=== PATIENT | female | born 1995 | race Caucasian/White ===

== ENCOUNTER 2020-01-16 23:49 | Inpatient (IN) ==
[2020-01-17] MEDS ORDERED: OXYTOCIN 30 UNITS/500 ML BAG IV PRN ×2 (00:36→16:09)
[2020-01-17] MEDS ORDERED: BUTORPHANOL TARTRATE 1 MG/ML VIAL IV PRN (00:44)
--- NOTE | 2020-01-17 00:44 | History & Physical Report ---
Date of Service January 17, 2020 Assessment & Plan (1) Normal labor: Admission and Anticipated Discharge Date Admission Date: IUP at 41 weeks who was to be induced for post term presents with early labor will walk for now - epidural when appropriate anticipate vaginal History of Present Illness Primary Care Provider: NO PCP Patient is a 24 yo who presents at 41 weeks with regular contractions today that became stronger around 2100. No SPROM but she has had a pink discharge. GBS negative. She was a late transfer to our care after her prior OB retired. o therwise has been uncomplicated. Allergies Allergy/AdvReac Type Severity Reaction Status Date / Time amoxicillin Allergy Unknown Unsure Verified 01/17/20 00:13 Penicillins Allergy Unknown Unsure Verified 01/17/20 00:13 Home Medications Home Medications Medication Instructions Recorded Confirmed Type prenat.vits,song,nag-ierk-kxykp 1 tab PO DAILY 12/24/19 01/17/20 History Patient History Medical History (Updated 01/17/20 @ 00:41 by Samia Quesada MD, FACOG) Hx of varicella Surgical History History of tonsillectomy and adenoidectomy Family History Mother Breast cancer Social History (Updated 12/24/19 @ 11:11 by Ana Maya) Smoking Status: Never smoker Second Hand Exposure: No; Hx Alcohol Use: No Hx Substance Use: No Preferred Language: [employer] Director Required: No Beliefs That Will Affect Care: None marital status: Single marital status details: Tomas Wilcox (25) [phone] Current Living Situation: Spouse Current Living Situation Comment: lives with FOB and his daughter, no pets current occupational status: employed current occupation: [employer] Other Information That Helps Us Care for You: No Feels Safe at Home: Yes Safety Concerns: Feels Safe At This Time Review of Systems All systems reviewed & are unremarkable except as noted in HPI & below Physical Exam Constitutional: WD/WN, vitals as above Respiratory: normal respiratory effort, lungs clear to auscultation Cardiovascular: RRR, no murmur, no edema Psychiatric: A+Ox3, euthymic affect Genitourinary: OB Exam Abdomen: + vertex and + regular contractions (every 2 minutes) Manual OB Exam: + cervical dilation 3 cm, + cervical effacement 60% and + station -2 OB Exam Monitor Tracing: + external FHT monitor used, + external uterine monitor used, + category I and + normal FHT variability Results & Data ([facility]) Vital Signs (Past 12 Hours) Vital Signs Temp Pulse Resp BP 01/17/20 00:20 118 H 134/74 01/17/20 00:14 98.1 F 18 Coding Level of Care Code None Diagnoses Normal labor O80; Z37.9
[2020-01-17] MEDS: LACTATED RINGER'S 1,000 ML IV PRN ×4 (00:56→12:57)
[2020-01-17 01:00] LABS: Hematocrit (blood only) 36.6 % (37-47); Hemoglobin 12.1 g/dL (12.0-16.0); Mean Corpuscular Hemoglobin 27.8 pg (25-34); Mean Corpuscular Volume 84.1 fL (80-100); Mean Platelet Volume 9.8 fL (7.4-10.4); Platelet Count 338 K/uL (130-400); RDW Standard Deviation 42.6 fL (36.4-46.3); Red Blood Count 4.35 M/uL (4.2-5.4); White Blood Count 18.16 K/uL (4.8-10.8)
[2020-01-17 01:02] LABS: Mean Corpuscular Hgb Conc 33.1 g/dL (32-36)
[2020-01-17] MEDS ORDERED: ePHEDrine sulfate 50 MG/ML AMP ONE (04:59)
[2020-01-17] MEDS ORDERED: fentaNYL citrate 100 MCG/2 ML VIAL ONE (05:00)
[2020-01-17] MEDS ORDERED: BUPIVACAINE 0.25% 30 ML VIAL ONE (05:00)
[2020-01-17] MEDS ORDERED: fentaNYL 2MCG/ML ROPIV 1.25MG/ML 100 ML BAG EPI ONE (05:00)
--- NOTE | 2020-01-17 05:50 | Anesthesiology Consultation ---
Date of Service January 17, 2020 Assessment & Plan Chart Review Chart Review: Acceptable Risk for Labor Epidural Consults Requested none History Height/Weight Height: 5 ft 4 in Weight: 90.718 kg Allergies Allergy/AdvReac Type Severity Reaction Status Date / Time amoxicillin Allergy Unknown Unsure Verified 01/17/20 00:13 Penicillins Allergy Unknown Unsure Verified 01/17/20 00:13 Medications Home Medications Medication Instructions Recorded Confirmed Last Taken prenat.vits,song,ckx-pdgp-qxcqm 1 tab PO DAILY 12/24/19 01/17/20 01/17/20 Active Medications Generic Name Dose Route Start Last Admin Trade Name Freq PRN Reason Stop Dose Admin Lactated Ringer's 1,000 mls @ 125 mls/hr 01/17/20 00:36 01/17/20 05:40 Lr IV 01/19/20 00:35 999 mls/hr .Q8H PRN Infusion L&D Protocol Protocol Past Medical History Medical History Hx of varicella Past Family History Family History Mother Breast cancer Past Surgical History Surgical History History of tonsillectomy and adenoidectomy Social History Smoking Status: Never smoker Hx Alcohol Use: No Hx Substance Use: No substance use type: does not use Physical Exam Vital Signs Last Vital Signs Temp 37.0 C 01/17/20 02:32 Pulse 122 H 01/17/20 05:48 Resp 16 01/17/20 05:33 BP 100/51 L 01/17/20 05:48 Pulse Ox 96 01/17/20 05:46 Testing Laboratory Results 01/17/20 00:45
[2020-01-17] MEDS ORDERED: ePHEDrine sulfate 50 MG/ML AMP IV PRN (05:53)
[2020-01-17] MEDS ORDERED: NALOXONE HCL 0.4 MG/1 ML VIAL/CARP IV PRN (05:53)
[2020-01-17] MEDS ORDERED: NALOXONE HCL 1 MG in SODIUM CHLORIDE 0.9% 1000ML 1,000 ML IV PRN (05:53)
[2020-01-17] MEDS ORDERED: DiphenhydrAMINE HCL 50 MG/ML VIAL IV PRN (05:53)
[2020-01-17] MEDS ORDERED: fentaNYL 2MCG/ML ROPIV 1.25MG/ML 100 ML BAG EPI PRN (05:53)
[2020-01-17] MEDS ORDERED: ONDANSETRON INJ 2 MG/ML 2 ML VIAL IV PRN (05:53)
[2020-01-17] MEDS ORDERED: PHENYLEPHRINE 100MCG/ML 5ML SYR ONE (06:07)
--- NOTE | 2020-01-17 10:30 | Labor Progress Brief Note ---
Date of Service January 17, 2020 Subjective Late note - from 0800. Patient comfortable with epidural. FHT 160s, mod maria alejandra, +accels, occ late decel. [place] Q 2 AROM clear with slight blood tinge. IUPC, FSE placed. SVE /-2 Assessment & Plan Admission and Anticipated Discharge Date Admission Date: January 17, 2020 Results & Data ([facility]) Vital Signs (Past 12 Hours) Vital Signs Temp Pulse Resp BP Pulse Ox 01/17/20 10:26 104 H 97 01/17/20 10:21 106 H 96 01/17/20 10:16 102 H 107/51 L 96 01/17/20 10:11 109 H 94 01/17/20 10:06 107 H 95 01/17/20 10:01 103 H 95 01/17/20 10:00 117 H 109/52 L 01/17/20 09:56 106 H 96 01/17/20 09:51 109 H 94 01/17/20 09:46 112 H 94 01/17/20 09:45 108 H 111/55 L 01/17/20 09:41 105 H 96 01/17/20 09:36 105 H 97 01/17/20 09:31 110 H 98 01/17/20 09:30 112 H 109/53 L 01/17/20 09:26 108 H 94 01/17/20 09:21 108 H 95 01/17/20 09:16 113 H 96 01/17/20 09:15 108 H 120/55 L 01/17/20 09:11 113 H 97 01/17/20 09:06 114 H 96 01/17/20 09:01 116 H 97/55 L 97 01/17/20 09:00 37.3 C 18 01/17/20 08:56 140 H 96 01/17/20 08:51 116 H 95 01/17/20 08:46 123 H 111/55 L 96 01/17/20 08:41 119 H 95 01/17/20 08:36 116 H 95 01/17/20 08:31 118 H 95 01/17/20 08:30 134 H 110/51 L 01/17/20 08:26 118 H 94 01/17/20 08:21 122 H 95 01/17/20 08:16 114 H 95 01/17/20 08:15 120 H 108/53 L 01/17/20 08:11 116 H 95 01/17/20 08:06 118 H 97 01/17/20 08:01 119 H 97 01/17/20 08:00 118 H 119/58 L 01/17/20 07:56 134 H 97 01/17/20 07:51 132 H 97 01/17/20 07:46 127 H 114/58 L 98 01/17/20 07:41 128 H 96 01/17/20 07:36 137 H 95 01/17/20 07:31 121 H 111/54 L 92 01/17/20 07:26 122 H 93 01/17/20 07:21 124 H 93 01/17/20 07:16 124 H 93 01/17/20 07:15 126 H 109/55 L 01/17/20 07:11 121 H 93 01/17/20 07:06 132 H 92 01/17/20 07:01 128 H 106/51 L 94 01/17/20 07:00 37.3 C 122 H 18 94 01/17/20 06:56 121 H 93 01/17/20 06:51 133 H 93 01/17/20 06:46 136 H 18 118/56 L 94 01/17/20 06:41 123 H 95 01/17/20 06:36 117 H 94 01/17/20 06:31 123 H 95 01/17/20 06:29 37.2 C 116 H 16 126/57 L 01/17/20 06:26 122 H 95 01/17/20 06:23 123 H 115/56 L 01/17/20 06:21 127 H 95 01/17/20 06:20 18 01/17/20 06:18 114 H 123/60 01/17/20 06:16 121 H 128/60 96 01/17/20 06:14 113 H 122/62 01/17/20 06:12 112 H 135/69 01/17/20 06:11 112 H 96 01/17/20 06:10 105 H 137/73 01/17/20 06:08 126 H 133/61 01/17/20 06:06 135 H 104/55 L 96 01/17/20 06:04 136 H 94 01/17/20 06:03 37.6 C H 130 H 18 96/50 L 01/17/20 06:01 129 H 102/50 L 94 01/17/20 05:58 116 H 91/41 L 01/17/20 05:56 119 H 92 01/17/20 05:53 121 H 93 01/17/20 05:51 124 H 95 01/17/20 05:50 118 H 92/47 L 01/17/20 05:48 122 H 100/51 L 01/17/20 05:46 119 H 101/51 L 96 01/17/20 05:45 18 01/17/20 05:44 130 H 100/48 L 01/17/20 05:42 120 H 101/54 L 01/17/20 05:41 130 H 96 01/17/20 05:40 116 H 16 83/44 L 01/17/20 05:39 117 H 90/50 L 94 01/17/20 05:36 128 H 110/51 L 94 01/17/20 05:34 118 H 115/55 L 01/17/20 05:33 16 01/17/20 05:31 122 H 94 01/17/20 05:30 126 H 119/72 01/17/20 05:29 128 H 94 01/17/20 05:28 129 H 16 117/75 01/17/20 05:26 130 H 96 01/17/20 05:21 129 H 95 01/17/20 05:16 133 H 96 01/17/20 05:15 129 H 93 01/17/20 05:11 139 H 95 01/17/20 05:06 130 H 94 01/17/20 05:03 132 H 94 01/17/20 05:01 136 H 97 01/17/20 04:56 179 H 97 01/17/20 02:32 37.0 C 105 H 16 120/69 01/17/20 00:20 118 H 134/74 01/17/20 00:14 36.7 C 18 Coding Level of Care Code None
--- NOTE | 2020-01-17 14:09 | Labor Progress Brief Note ---
Date of Service January 17, 2020 Subjective Patient is beginning to push w/ contractions. Assessment & Plan Admission and Anticipated Discharge Date Admission Date: January 17, 2020 Physical Exam Genitourinary: OB Exam Monitor Tracing: + external FHT monitor used, + scalp electrode used, + external uterine monitor used and + normal FHT variability Manual OB Exam: 10cm 100%. +2. Results & Data ([facility]) Vital Signs (Past 12 Hours) Vital Signs Temp Pulse Resp BP Pulse Ox 01/17/20 14:01 114 H 99 01/17/20 14:00 133 H 122/59 L 01/17/20 13:56 98 H 100 01/17/20 13:51 103 H 100 01/17/20 13:46 96 H 98 01/17/20 13:45 98 H 130/71 01/17/20 13:41 100 H 100 01/17/20 13:36 102 H 100 01/17/20 13:31 105 H 100 01/17/20 13:30 95 H 18 128/64 01/17/20 13:26 105 H 100 01/17/20 13:21 100 H 99 01/17/20 13:16 98 H 99 01/17/20 13:15 100 H 120/57 L 01/17/20 13:11 100 H 100 01/17/20 13:06 101 H 99 01/17/20 13:01 107 H 128/63 100 01/17/20 13:00 37.3 C 18 01/17/20 12:56 98 H 100 01/17/20 12:51 97 H 100 01/17/20 12:46 109 H 99 01/17/20 12:45 98 H 121/56 L 01/17/20 12:41 101 H 99 01/17/20 12:36 102 H 98 01/17/20 12:31 103 H 98 01/17/20 12:30 103 H 18 120/56 L 01/17/20 12:26 108 H 98 01/17/20 12:21 97 H 98 01/17/20 12:16 106 H 98 01/17/20 12:15 100 H 118/63 01/17/20 12:11 107 H 99 01/17/20 12:06 113 H 98 01/17/20 12:01 120 H 126/69 98 01/17/20 12:00 18 01/17/20 11:56 104 H 96 01/17/20 11:51 108 H 96 01/17/20 11:46 104 H 97 01/17/20 11:45 115 H 119/64 01/17/20 11:41 129 H 97 01/17/20 11:36 106 H 96 01/17/20 11:31 100 H 96 01/17/20 11:30 104 H 18 127/67 01/17/20 11:26 112 H 97 01/17/20 11:21 101 H 97 01/17/20 11:16 95 H 123/69 98 01/17/20 11:11 97 H 98 01/17/20 11:06 96 H 98 01/17/20 11:01 106 H 119/57 L 96 01/17/20 11:00 37.2 C 18 01/17/20 10:56 105 H 95 01/17/20 10:51 107 H 95 01/17/20 10:46 106 H 115/57 L 96 01/17/20 10:41 109 H 96 01/17/20 10:36 104 H 95 01/17/20 10:31 109 H 112/54 L 97 01/17/20 10:30 16 01/17/20 10:26 104 H 97 01/17/20 10:21 106 H 96 01/17/20 10:16 102 H 107/51 L 96 01/17/20 10:11 109 H 94 01/17/20 10:06 107 H 95 01/17/20 10:01 103 H 95 01/17/20 10:00 117 H 18 109/52 L 01/17/20 09:56 106 H 96 01/17/20 09:51 109 H 94 01/17/20 09:46 112 H 94 01/17/20 09:45 108 H 111/55 L 01/17/20 09:41 105 H 96 01/17/20 09:36 105 H 97 01/17/20 09:31 110 H 98 01/17/20 09:30 112 H 20 109/53 L 01/17/20 09:26 108 H 94 01/17/20 09:21 108 H 95 01/17/20 09:16 113 H 96 01/17/20 09:15 108 H 120/55 L 01/17/20 09:11 113 H 97 01/17/20 09:06 114 H 96 01/17/20 09:01 116 H 97/55 L 97 01/17/20 09:00 37.3 C 18 01/17/20 08:56 140 H 96 01/17/20 08:51 116 H 95 01/17/20 08:46 123 H 111/55 L 96 01/17/20 08:41 119 H 95 01/17/20 08:36 116 H 95 01/17/20 08:31 118 H 95 01/17/20 08:30 134 H 18 110/51 L 01/17/20 08:26 118 H 94 01/17/20 08:21 122 H 95 01/17/20 08:16 114 H 95 01/17/20 08:15 120 H 108/53 L 01/17/20 08:11 116 H 95 01/17/20 08:06 118 H 97 01/17/20 08:01 119 H 97 01/17/20 08:00 118 H 16 119/58 L 01/17/20 07:56 134 H 97 01/17/20 07:51 132 H 97 01/17/20 07:46 127 H 114/58 L 98 01/17/20 07:41 128 H 96 01/17/20 07:36 137 H 95 01/17/20 07:31 121 H 111/54 L 92 01/17/20 07:30 18 01/17/20 07:26 122 H 93 01/17/20 07:21 124 H 93 01/17/20 07:16 124 H 93 01/17/20 07:15 126 H 109/55 L 01/17/20 07:11 121 H 93 01/17/20 07:06 132 H 92 01/17/20 07:01 128 H 106/51 L 94 01/17/20 07:00 37.3 C 122 H 18 94 01/17/20 06:56 121 H 93 01/17/20 06:51 133 H 93 01/17/20 06:46 136 H 18 118/56 L 94 01/17/20 06:41 123 H 95 01/17/20 06:36 117 H 94 01/17/20 06:31 123 H 95 01/17/20 06:29 37.2 C 116 H 16 126/57 L 01/17/20 06:26 122 H 95 01/17/20 06:23 123 H 115/56 L 01/17/20 06:21 127 H 95 01/17/20 06:20 18 01/17/20 06:18 114 H 123/60 01/17/20 06:16 121 H 128/60 96 01/17/20 06:14 113 H 122/62 01/17/20 06:12 112 H 135/69 01/17/20 06:11 112 H 96 01/17/20 06:10 105 H 137/73 01/17/20 06:08 126 H 133/61 01/17/20 06:06 135 H 104/55 L 96 01/17/20 06:04 136 H 94 01/17/20 06:03 37.6 C H 130 H 18 96/50 L 01/17/20 06:01 129 H 102/50 L 94 01/17/20 05:58 116 H 91/41 L 01/17/20 05:56 119 H 92 01/17/20 05:53 121 H 93 01/17/20 05:51 124 H 95 01/17/20 05:50 118 H 92/47 L 01/17/20 05:48 122 H 100/51 L 01/17/20 05:46 119 H 101/51 L 96 01/17/20 05:45 18 01/17/20 05:44 130 H 100/48 L 01/17/20 05:42 120 H 101/54 L 01/17/20 05:41 130 H 96 01/17/20 05:40 116 H 16 83/44 L 01/17/20 05:39 117 H 90/50 L 94 01/17/20 05:36 128 H 110/51 L 94 01/17/20 05:34 118 H 115/55 L 01/17/20 05:33 16 01/17/20 05:31 122 H 94 01/17/20 05:30 126 H 119/72 01/17/20 05:29 128 H 94 01/17/20 05:28 129 H 16 117/75 01/17/20 05:26 130 H 96 01/17/20 05:21 129 H 95 01/17/20 05:16 133 H 96 01/17/20 05:15 129 H 93 01/17/20 05:11 139 H 95 01/17/20 05:06 130 H 94 01/17/20 05:03 132 H 94 01/17/20 05:01 136 H 97 01/17/20 04:56 179 H 97 01/17/20 02:32 37.0 C 105 H 16 120/69
--- NOTE | 2020-01-17 15:11 | Labor Progress Brief Note ---
Date of Service January 17, 2020 Subjective Reason For Note: Routine Evaluation Saw patient at noon and again 2hr later. late entry due to attending to documentation of surgical pt. she is comfortable. no pressure was 8cm at noon evaluation with regular ctx pattern and categ 1 fetus. Assessment & Plan (1) Normal labor: cont 2nd stage. fhts categ 2. Admission and Anticipated Discharge Date Admission Date: January 17, 2020 Physical Exam Constitutional: WD/WN, vitals as above Genitourinary: Manual OB Exam: + cervical dilation (ant lip, reduced with one push), + cervical effacement 100% and + station + 2 OB Exam Monitor Tracing: + external FHT monitor used (160 mod variability, variable decels, spont accels, scalp stim response), + intra-uterine pressure catheter used (q3, was falling out, removed, replace with ext monitor), + category II, + normal FHT variability and + variable decelerations Results & Data ([facility]) Vital Signs (Past 12 Hours) Vital Signs Temp Pulse Resp BP Pulse Ox 01/17/20 15:06 161 H 99 01/17/20 15:01 161 H 86 L 01/17/20 15:00 160 H 103/51 L 01/17/20 14:59 98.2 F 22 01/17/20 14:56 151 H 99 01/17/20 14:55 178 H 86 L 01/17/20 14:51 157 H 100 01/17/20 14:46 144 H 138/59 L 99 01/17/20 14:43 155 H 84 L 01/17/20 14:41 124 H 89 L 01/17/20 14:36 136 H 97 01/17/20 14:31 150 H 152/68 H 98 01/17/20 14:26 133 H 99 01/17/20 14:21 142 H 100 01/17/20 14:16 133 H 70 L 01/17/20 14:15 116 H 117/58 L 01/17/20 14:11 124 H 100 01/17/20 14:06 104 H 99 01/17/20 14:01 114 H 99 01/17/20 14:00 133 H 122/59 L 01/17/20 13:56 98 H 100 01/17/20 13:51 103 H 100 01/17/20 13:46 96 H 98 01/17/20 13:45 98 H 130/71 01/17/20 13:41 100 H 100 01/17/20 13:36 102 H 100 01/17/20 13:31 105 H 100 01/17/20 13:30 95 H 18 128/64 01/17/20 13:26 105 H 100 01/17/20 13:21 100 H 99 01/17/20 13:16 98 H 99 01/17/20 13:15 100 H 120/57 L 01/17/20 13:11 100 H 100 01/17/20 13:06 101 H 99 01/17/20 13:01 107 H 128/63 100 01/17/20 13:00 99.1 F 18 01/17/20 12:56 98 H 100 01/17/20 12:51 97 H 100 01/17/20 12:46 109 H 99 01/17/20 12:45 98 H 121/56 L 01/17/20 12:41 101 H 99 01/17/20 12:36 102 H 98 01/17/20 12:31 103 H 98 01/17/20 12:30 103 H 18 120/56 L 01/17/20 12:26 108 H 98 01/17/20 12:21 97 H 98 01/17/20 12:16 106 H 98 01/17/20 12:15 100 H 118/63 01/17/20 12:11 107 H 99 01/17/20 12:06 113 H 98 01/17/20 12:01 120 H 126/69 98 01/17/20 12:00 18 01/17/20 11:56 104 H 96 01/17/20 11:51 108 H 96 01/17/20 11:46 104 H 97 01/17/20 11:45 115 H 119/64 01/17/20 11:41 129 H 97 01/17/20 11:36 106 H 96 01/17/20 11:31 100 H 96 01/17/20 11:30 104 H 18 127/67 01/17/20 11:26 112 H 97 01/17/20 11:21 101 H 97 01/17/20 11:16 95 H 123/69 98 01/17/20 11:11 97 H 98 01/17/20 11:06 96 H 98 01/17/20 11:01 106 H 119/57 L 96 01/17/20 11:00 99.0 F 18 01/17/20 10:56 105 H 95 01/17/20 10:51 107 H 95 01/17/20 10:46 106 H 115/57 L 96 01/17/20 10:41 109 H 96 01/17/20 10:36 104 H 95 01/17/20 10:31 109 H 112/54 L 97 01/17/20 10:30 16 01/17/20 10:26 104 H 97 01/17/20 10:21 106 H 96 01/17/20 10:16 102 H 107/51 L 96 01/17/20 10:11 109 H 94 01/17/20 10:06 107 H 95 01/17/20 10:01 103 H 95 01/17/20 10:00 117 H 18 109/52 L 01/17/20 09:56 106 H 96 01/17/20 09:51 109 H 94 01/17/20 09:46 112 H 94 01/17/20 09:45 108 H 111/55 L 01/17/20 09:41 105 H 96 01/17/20 09:36 105 H 97 01/17/20 09:31 110 H 98 01/17/20 09:30 112 H 20 109/53 L 01/17/20 09:26 108 H 94 01/17/20 09:21 108 H 95 01/17/20 09:16 113 H 96 01/17/20 09:15 108 H 120/55 L 01/17/20 09:11 113 H 97 01/17/20 09:06 114 H 96 01/17/20 09:01 116 H 97/55 L 97 01/17/20 09:00 99.1 F 18 01/17/20 08:56 140 H 96 01/17/20 08:51 116 H 95 01/17/20 08:46 123 H 111/55 L 96 01/17/20 08:41 119 H 95 01/17/20 08:36 116 H 95 01/17/20 08:31 118 H 95 01/17/20 08:30 134 H 18 110/51 L 01/17/20 08:26 118 H 94 01/17/20 08:21 122 H 95 01/17/20 08:16 114 H 95 01/17/20 08:15 120 H 108/53 L 01/17/20 08:11 116 H 95 01/17/20 08:06 118 H 97 01/17/20 08:01 119 H 97 01/17/20 08:00 118 H 16 119/58 L 01/17/20 07:56 134 H 97 01/17/20 07:51 132 H 97 01/17/20 07:46 127 H 114/58 L 98 01/17/20 07:41 128 H 96 01/17/20 07:36 137 H 95 01/17/20 07:31 121 H 111/54 L 92 01/17/20 07:30 18 01/17/20 07:26 122 H 93 01/17/20 07:21 124 H 93 01/17/20 07:16 124 H 93 01/17/20 07:15 126 H 109/55 L 01/17/20 07:11 121 H 93 01/17/20 07:06 132 H 92 01/17/20 07:01 128 H 106/51 L 94 01/17/20 07:00 99.1 F 122 H 18 94 01/17/20 06:56 121 H 93 01/17/20 06:51 133 H 93 01/17/20 06:46 136 H 18 118/56 L 94 01/17/20 06:41 123 H 95 01/17/20 06:36 117 H 94 01/17/20 06:31 123 H 95 01/17/20 06:29 99.0 F 116 H 16 126/57 L 01/17/20 06:26 122 H 95 01/17/20 06:23 123 H 115/56 L 01/17/20 06:21 127 H 95 01/17/20 06:20 18 01/17/20 06:18 114 H 123/60 01/17/20 06:16 121 H 128/60 96 01/17/20 06:14 113 H 122/62 01/17/20 06:12 112 H 135/69 01/17/20 06:11 112 H 96 01/17/20 06:10 105 H 137/73 01/17/20 06:08 126 H 133/61 01/17/20 06:06 135 H 104/55 L 96 01/17/20 06:04 136 H 94 01/17/20 06:03 99.7 F H 130 H 18 96/50 L 01/17/20 06:01 129 H 102/50 L 94 01/17/20 05:58 116 H 91/41 L 01/17/20 05:56 119 H 92 01/17/20 05:53 121 H 93 01/17/20 05:51 124 H 95 01/17/20 05:50 118 H 92/47 L 01/17/20 05:48 122 H 100/51 L 01/17/20 05:46 119 H 101/51 L 96 01/17/20 05:45 18 01/17/20 05:44 130 H 100/48 L 01/17/20 05:42 120 H 101/54 L 01/17/20 05:41 130 H 96 01/17/20 05:40 116 H 16 83/44 L 01/17/20 05:39 117 H 90/50 L 94 01/17/20 05:36 128 H 110/51 L 94 01/17/20 05:34 118 H 115/55 L 01/17/20 05:33 16 01/17/20 05:31 122 H 94 01/17/20 05:30 126 H 119/72 01/17/20 05:29 128 H 94 01/17/20 05:28 129 H 16 117/75 01/17/20 05:26 130 H 96 01/17/20 05:21 129 H 95 01/17/20 05:16 133 H 96 01/17/20 05:15 129 H 93 01/17/20 05:11 139 H 95 01/17/20 05:06 130 H 94 01/17/20 05:03 132 H 94 01/17/20 05:01 136 H 97 01/17/20 04:56 179 H 97 Coding Level of Care Code None Diagnoses Normal labor O80; Z37.9
[2020-01-17] MEDS ORDERED: miSOPROStoL 200 MCG TAB ONE (15:37)
[2020-01-17] MEDS ORDERED: OXYCODONE/ACETAMINOPHEN 5mg/325mg TAB PO PRN (15:44)
[2020-01-17] MEDS ORDERED: IBUPROFEN 600 MG TAB PO PRN (15:44)
[2020-01-17] MEDS ORDERED: ACETAMINOPHEN 325 MG TAB PO PRN (15:44)
[2020-01-17] MEDS ORDERED: OXYTOCIN 20 UNITS in LACTATED RINGER'S 1,000 ML IV SCH (15:45)
--- NOTE | 2020-01-17 15:52 | Delivery Summary ---
Vaginal Delivery Summary Date of Service January 17, 2020 The patient dilated to complete and pushed to deliver a viable female Apgars 7 and 8 via over intact perineum. Mouth and nose bulb suctioned at perineum. Loose nuchal x 1 reduced. Shoulders and body delivered with ease. Meconium stained fluid noted. Infant cried at but was warm and limp and therefore cord clamped and to maternal abdomen where the cord was then doubly clamped and cut. Infant to radiant warmer. Placenta delivered spontaneously and intact, three-vessel cord. Hemostasis not achieved with dilute pitocin and uterine massage/bimanual massage and drainage of the bladder for approximately 200 cc under sterile conditions. Therefore 800mcg rectal cytotec given. Uterine tone improved and hemostasis more adequate. Cervix and sulci intact. EBL 500 cc. Cord blood and gases obtained. Mother stable in recovery. Infant under care of nursery nursing. [facility] [place] Vaginal Delivery Charge Vaginal Delivery Codes: 80759 global code for the antepartum, delivery, and post-
[2020-01-17] MEDS ORDERED: HYDROCORTISONE ACETATE 25 MG SUPP PR PRN (16:09)
[2020-01-17] MEDS ORDERED: DIPHTHERIA/TETANUS/PERTUSSIS 0.5 ML SYR/VIAL IM ONE (16:09)
[2020-01-17] MEDS ORDERED: SUPERCREAM 0.870% 15 GM JAR EXT PRN (16:09)
[2020-01-17] MEDS ORDERED: miSOPROStoL 200 MCG TAB PR ONE (16:20)
[2020-01-17 16:27] LABS: Base Excess Cord Arterial Bld -7.7 mEq/L (-9-1.8); CO2 Cord Arterial Blood 50 mmHg (39.1-73.5); HCO3 Cord Arterial Blood 20 mmol/L (19.7-28.5); PO2 Cord Arterial Blood 17 mmHg (4.1-31.7); pH Cord Arterial Blood 7.23 (7.1-7.38)
[2020-01-17 16:34] LABS: Base Excess Cord Venous Blood -6.4 mEq/L (-7.7-1.9); Cord Venous Blood HCO3 18 mmol/L (18.4-26.8); Cord Venous Blood PCO2 34 mmHg (30.4-57.2); Cord Venous Blood PO2 30 mmHg (14.1-43.3); Cord Venous Blood pH 7.34 (7.20-7.44)
[2020-01-17 16:36] LABS: Oxygen Sat Cord Arterial Blood < 60.0 % (<60)
--- NOTE | 2020-01-17 17:00 | Anesthesia Procedure Note ---
Date of Service January 17, 2020 Anesthesia Post Epidural Note Vital Signs Vital Signs: Temp Pulse Resp BP Pulse Ox 102.7 F H 109 H 18 124/67 94 01/17/20 15:45 01/17/20 16:56 01/17/20 15:45 01/17/20 16:45 01/17/20 16:56 Notes Mental Status: alert / awake / arousable and participated in evaluation Nausea / Vomiting: adequately controlled Pain: adequately controlled Airway Patency, RR, SpO2: stable & adequate BP & HR: stable & adequate Hydration State: stable & adequate Neuraxial Anesthesia: was administered and sensory block is resolving Anesthetic Complications: no major complications apparent and Pt Satisfied with anesthetic care Epidural: Removed without complications and With tip intact
[2020-01-17] MEDS: BENZOCAINE 20% AER SPR 82.5 GM CAN EXT PRN (20:01)
[2020-01-17] MEDS: DOCUSATE SODIUM 100 MG CAP PO SCH (21:15)
[2020-01-17] MEDS: CALCIUM 600MG + VIT D 400 IU TAB PO SCH (21:15)
--- NOTE | 2020-01-18 06:30 | Obstetrical Progress Note ---
Date of Service <Jonh Littlejohn MD - Last Filed: 01/18/20 07:43> January 18, 2020 Assessment & Plan <John Littlejohn MD - Last Filed: 01/18/20 07:43> (1) state: Ivania Lomax is a 24 y/o F who is s/p at 41w1d on 01/17/20, complicated by intrapartum fever just prior to delivery. O positive. Antibody screen negative. GBS neg. [place] is under care of nursery for respiratory distress (TTN vs RDS, less likely meconium aspiration) has received amp and gent. state - vitals reviewed. tachycardia yesterday evening mostly 1 teens w/ peak of 138. Current HR is 93. fever curve: 39.3C x1 right after delivery. Since then, has been afebrile 36.8-37.3, downtrending. - wbc uptrended from 18.16 to 25.88. H/H 9.7/28.9. Hb was 12.1 on admission. - pain is minimal and patient doing well plan: continue routine care. monitor fever curve. trend wbc. Intrapartum fever, delivered - see temperature discussion above. - from a possible chorioamnionitis standpoint, would likely not treat mother s/p vaginal delivery especially in context of fever not returning - new mild dysuria today plan: may obtain urine culture. will discuss during rounds. Subjective <John Littlejohn MD - Last Filed: 01/18/20 07:43> Ambulation: ambulating normally Passing Gas:: Yes (no BM) Diet Tolerance:: regular diet Lochia:: Small Current Pain Level(1-10): 2 Patient states she is doing well. Has not needed ibuprofen or Tylenol for pain. Voiding ok, but slight dysuria, new for her. no hematuria. Some mild bilateral thigh soreness, 2-3/10 in intensity. Plans to bottlefeed baby, based on personal preference. Review of Systems Denies fever, chills Denies shortness of breath, chest pain, palpitations. Denies breast pain. Denies headache, dizziness, changes in vision. Denies nausea/vomiting. Denies numbness, tingling, weakness. Physical Exam <John Littlejohn MD - Last Filed: 01/18/20 07:43> General: Alert, oriented. No acute distress. Cardiac: Tachycardic rate and regular rhythm, no murmurs/rubs/gallops. Respiratory: Clear to auscultation bilaterally, no wheezes/rales/rhonchi. No respiratory distress. Abdomen: , soft, nontender. Bowel sounds present. Uterus: Uterine fundus firm, palpable at umbilicus. Lower Extremities: Trace LE edema. No deep calf pain. Jeff's negative bilaterally. Results & Data ([facility]) <John Littlejohn MD - Last Filed: 01/18/20 07:43> Vital Signs (Past 12 Hours) Vital Signs Temp Pulse Resp BP 01/18/20 03:59 36.8 C 93 H 20 110/73 01/17/20 23:45 36.7 C 90 20 110/71 01/17/20 19:48 37.1 C 107 H 20 104/62 Medications Administered <Karon Randhawa MD, FACOG - Last Filed: 01/18/20 08:03> Co-Signing Physician Notes Resident Physician Supervision Note: I was present with Dr. Littlejohn during the history and exam. I discussed the case with the resident and agree with the findings and plan as documented in the note. Any exceptions or clarifications are listed here: doing well. bottle feeding, eating, voiding. her burning with urination is after urine hits vulva, on right there was a labial separation, not repaired. she did not have intrapartum fever, pp fever but resolved. i am not interested in following trend of wbc unless other issues arise. hgb as expected for blood loss. routine pp care. being evaluated for temp in IN[facility] but improving per nursing. Documented By: Karon Randhawa MD, FACOG
[2020-01-18 06:46] LABS: Hematocrit (blood only) 28.9 % (37-47); Hemoglobin 9.7 g/dL (12.0-16.0); Mean Corpuscular Hemoglobin 28.1 pg (25-34); Mean Corpuscular Hgb Conc 33.6 g/dL (32-36); Mean Corpuscular Volume 83.8 fL (80-100); Mean Platelet Volume 9.5 fL (7.4-10.4); Platelet Count 278 K/uL (130-400); RDW Coefficient of Variation 14.5 % (11.5-14.5); RDW Standard Deviation 43.9 fL (36.4-46.3); Red Blood Count 3.45 M/uL (4.2-5.4); White Blood Count 25.88 K/uL (4.8-10.8)
--- NOTE | 2020-01-18 07:39 | Medical Student Progress Note ---
Date of Service January 18, 2020 Assessment & Plan (1) state: Ivania is a 24 yo , PP day 1 s/p vaginal delivery post term 40 weeks 1 day. GSP -, blood type O+, Rubella Immune. * Experienced about 500 cc blood loss during delivery. Continue routine care. * Spiked a fever right after delivery TMax 39.3, has come down to normal limits since then * Mild dysriua post delivery, not on initiation, most likely due to vaginal laceration during labor. Use water bottle during urination. Continue to monitor. Admission and Anticipated Discharge Date Admission Date: January 17, 2020 Subjective Ivania is a 24 yo female . PP day 1 after vaginal delivery post term 41 weeks and 1 day. She had been stable overnight. She reports her overall pain level at 2/10, and she is not on any pain medication. She noted 2-3/10 pain in both of her upper thighs. Denies pain in both calfs. Ivania also noted new onset of slight burning on urination with no associated hematuria. She admits to mild vaginal discharge. She has been able to eat, walk around, pass gas, but not had a bowel movement. Ivania also denies fever, chills, SOB, chest pain, nausea, vomiting, constipation, diarrhea, breast tenderness, numbness, tingling. She is overall doing well. Physical Exam Physical Exam: Performed by resident Constitutional: WD/WN, vitals as above no signs of acute distress Respiratory: normal respiratory effort, lungs clear to auscultation normal respiratory effort Auscultation: lungs clear to auscultation bilaterally no crackles, wheezing, or ronchi Cardiovascular: Rate/Rhythm: regular rate, regular rhythm and + tachycardic no rubs murmurs or gallops . Trace bilalower extremity teral edema noted Gastrointestinal (Abdomen): normal bowel sounds, soft, nontender, no hepatosplenomegaly Inspection/Auscultation: abdomen normal to inspection and normal bowel sounds fundus height palpated 1 cm below aubilicus Results & Data ([facility]) Vital Signs (Past 12 Hours) Vital Signs Temp Pulse Resp BP 01/18/20 03:59 36.8 C 93 H 20 110/73 01/17/20 23:45 36.7 C 90 20 110/71 01/17/20 19:48 37.1 C 107 H 20 104/62
--- NOTE | 2020-01-18 07:47 | Medical Student Progress Note ---
Date of Service January 18, 2020 Assessment & Plan (1) state: Ivania Lomax is a 24 y/o who is post- from at 41w1d on 01/17/20. Complicated by intrapartum fever prior to surgery that has since come down to within normal limits. Pt is O+, antibody screen negative, GBS negative, Rubella immune. [place] has received amp and gent and is under care of the nursery for respiratory distress. state 500 cc blood loss during delivery and watch hemoglobin. Continue routine care. Fever post-delivery Fever post-delivery that has since resolved. Monitor fever curve Mild Dysuria Pt has mild dysuria today likely from delivery-induced laceration. Pt will use water bottle to dilute urine to manage urinary discomfort. Continue routine care. Admission and Anticipated Discharge Date Admission Date: January 17, 2020 Maki Redd is a 24 y/o female who is now PPD 1 day following spontaneous vaginal delivery at 41w1d. Reports feeling well overall this morning. Denies abdominal cramping and is experiencing overall 2/10 pain. Pt is also experiencing mild 3/10 bilateral thigh pain. Pt denies calf pain. Pt denies breast tenderness. Pt is able to ambulate and pass gas. Pt is able to void urine and has mild burning sensation associated with voiding. Pt has yet to have a bowel movement post- but denies symptoms of constipation. Pt denies lochia or vaginal discharge. Pt will be exclusively bottle feeding. Pt has no preference for type of formula she will be using. ROS Denies fever, chills, sweats Denies SOB, difficulty breathing, chest pain, palpitations Denies breast pain Experiencing mild burning with urination Denies headache or changes in vision Physical Exam Constitutional: Appears no acute distress Respiratory: normal respiratory effort, lungs clear to auscultation Cardiovascular: Tachycardic rate and normal rhythm with no rubs, murmurs, clicks, or gallops. Trace bilateral pedal edema. Gastrointestinal (Abdomen): normal bowel sounds, soft, nontender, no hepatosplenomegaly Musculoskeletal: Jeff's sign negative. Neurologic: Denies headache or changes in vision Psychiatric: Affect: euthymic affect Genitourinary: Fundus height 1 cm below umbilicus Results & Data ([facility]) Vital Signs (Past 12 Hours) Vital Signs Temp Pulse Resp BP 01/18/20 03:59 36.8 C 93 H 20 110/73 01/17/20 23:45 36.7 C 90 20 110/71 01/17/20 19:48 37.1 C 107 H 20 104/62
[2020-01-18] MEDS: PRENATAL VITAMIN 1 TAB PO SCH (08:06)
[2020-01-18] MEDS: CALCIUM 600MG + VIT D 400 IU TAB PO SCH ×2 (08:06→21:13)
[2020-01-18] MEDS: DOCUSATE SODIUM 100 MG CAP PO SCH ×2 (08:06→21:13)
--- NOTE | 2020-01-19 06:31 | Obstetrical Progress Note ---
Date of Service <John Littlejohn MD - Last Filed: 01/19/20 07:11> January 19, 2020 Assessment & Plan <John Littlejohn MD - Last Filed: 01/19/20 07:11> (1) state: Ivania Lomax is a 24 y/o F who is s/p at 41w1d on 01/17/20 (PPD2), complicated by intrapartum fever just after delivery. O positive. Antibody screen negative. Rubella immune. GBS neg. is under care of nursery for respiratory distress (TTN vs RDS, less likely meconium aspiration) has received amp and gent. state most recent vitals (01/18/20 2345) reviewed and wnl. HR 81. fever curve: 39.3C x1 right after delivery. Since then, has been afebrile. Tmax overnight 36.5C. Hb 12.1 on admission to 9.7 on 01/18/20, most likely secondary to the 500cc blood loss during delivery (received 800cc rectal cytotec). no new labs today - no pain. patient doing well plan: continue routine care. likely dispo today. Fever after delivery, resolved - see temperature discussion above. - no fever recorded prior to delivery. would likely not treat mother s/p vaginal delivery especially in context of fever not returning - as mentioned per attending note yesterday, will not follow wbc unless new symptoms. plan: monitor fever curve R superior vaginal laceration - s/p , mild, did not require sutures -some mild dysuria PPD1, attributed to this, dysuria resolved on 01/18 plan: routine care Subjective <John Littlejohn MD - Last Filed: 01/19/20 07:11> Ambulation: ambulating normally Voiding: no voiding problems Passing Gas:: Yes Diet Tolerance:: regular diet Lochia:: Small Feeding Type:: bottle feeding Current Pain Level(1-10): 0 Doing well. No pain overnight. +bm overnight. + flatus. dysuria resolved. no leg pains, back pains. no numb/ting/wk. Mood ok. Doesnt have regular ob. Review of Systems Denies fever, chills, Denies shortness of breath, chest pain, palpitations. Denies dysuria. Denies headache or changes in vision. Denies nausea/vomiting. Denies numbness, tingling, weakness. Physical Exam <John Littlejohn MD - Last Filed: 01/19/20 07:11> General: Alert, oriented. No acute distress. Cardiac: Regular rate and regular rhythm, no murmurs/rubs/gallops. Respiratory: Clear to auscultation bilaterally, no wheezes/rales/rhonchi. No respiratory distress. Abdomen: , soft, nontender. Bowel sounds present. No flank tenderness. Uterus: Uterine fundus firm, palpable at level of umbilicus, left of umbilicus. Lower Extremities: Trace LE edema. No deep calf pain. Jeff's negative bilaterally. Results & Data ([facility]) <John Littlejohn MD - Last Filed: 01/19/20 07:11> Vital Signs (Past 12 Hours) Vital Signs Temp Pulse Resp BP Pulse Ox 01/18/20 23:45 36.5 C 81 16 101/63 97 01/18/20 19:05 36.4 C L 88 16 108/67 98 Medications Administered <Tadeo Cobian MD, FACOG - Last Filed: 01/19/20 07:42> Co-Signing Physician Notes Resident Physician Supervision Note: I was present with [Eron] during the history and exam. I discussed the case with the resident and agree with the findings and plan as documented in the note. Any exceptions or clarifications are listed here: [None] Documented By: Tadeo Cobian MD, FACOG
--- NOTE | 2020-01-19 06:53 | Medical Student Progress Note ---
Date of Service January 19, 2020 Assessment & Plan (1) state: Ivania is a 24 yo , PP day 2 s/p vaginal delivery post term 41 weeks 1 day complicated with fever spike right after delivery. Blood type O+, Rubella Immune. Fever post delivery * Spiked fever right after delivery. TMax 39.9. Has come down since then. 35.5 today. Dysuria * Slight dysuria started pp likely due to minor labia laceration. Very minimal today compared to yesterday. Continue routine care. Blood loss: * Experienced about 500 cc blood loss during delivery. Continue routine care. Admission and Anticipated Discharge Date Admission Date: January 17, 2020 Subjective Ivania is a 24 yo , PP day 2 s/p vaginal delivery post term 41 weeks 1 day. She had been feeling well overnight. She rates her overall pain at 0/10 today and is not on any pain medication. Last night she had a bowel movement and passed gas, she was also able to empty her bladder with very minimal burning sensation compared to yesterday. No bladder incontinence. She noted mild vaginal bleeding. Ivania denies calf pain, breast tenderness, and muscle pain in the upper thigh has resolved. She continues to bottle feed her baby and is in a good mood. Review of Systems Constitutional: no fever, no chills and no sweats Cardiovascular: no chest pain, no dyspnea and no calf pain Gastrointestinal: no nausea, no vomiting, no constipation and no di arrhea/loose stools Neurologic: no tingling, no numbness and no headache(s) Hematologic / Lymphatic: no night sweats Physical Exam Physical Exam: heart and lung exam performed by me. Abd, and lower extemity by other med student Constitutional: WD/WN, vitals as above no signs of acute distress Respiratory: normal respiratory effort, lungs clear to auscultation normal respiratory effort Auscultation: lungs clear to auscultation bilaterally no rales ronchi or wheezing Cardiovascular: RRR, no murmur, no edema no rubs murmurs or gallop. Trace bilateral lower extremity edema Gastrointestinal (Abdomen): normal bowel sounds, soft, nontender, no hepatosplenomegaly Inspection/Auscultation: abdomen normal to inspection and normal bowel sounds Fundus height was hard to palpate. possibly 1? cm below umbilicus Results & Data ([facility]) Vital Signs (Past 12 Hours) Vital Signs Temp Pulse Resp BP Pulse Ox 01/18/20 23:45 36.5 C 81 16 101/63 97 01/18/20 19:05 36.4 C L 88 16 108/67 98
--- NOTE | 2020-01-19 06:56 | Medical Student Progress Note ---
Date of Service January 19, 2020 Assessment & Plan (1) state: Ivania Lomax is a 24 y/o O+ rubella immune who is post- from at 41w1d on 01/17/20 complicated by fever with that has since come down to within normal limits. blood loss. 500 cc blood loss during delivery and watch hemoglobin. Continue routine care. Fever post-delivery Fever post-delivery that has since resolved. Monitor fever curve Mild Dysuria Mild dysuria has mostly resolved today. Continue routine care Admission and Anticipated Discharge Date Admission Date: January 17, 2020 Subjective Ivania Lomax is a O+ rubella immune who is now PPD 2 following at 41w1d. Reports feeling well overall this morning. Denies abdominal cramping and has 0/10 pain. Voiding urine well with less pain from urination due to -induced laceration than yesterday. Pt is no longer experiencing thigh pain. Pt is passing gas and has normal bowel movements. Mild lochia. Pt is bottle feeding. Physical Exam Respiratory: normal respiratory effort, lungs clear to auscultation Cardiovascular: RRR, no murmur, no edema Trace (1+) pedal edema Gastrointestinal (Abdomen): normal bowel sounds, soft, nontender, no hepatosplenomegaly Musculoskeletal: Jeff's sign negative bilaterally. Psychiatric: Euthymic affect Genitourinary: Fundus was firm and hard to palpate but located in the periumbilicus region and shifted roughly 1-2 cm to the left. Results & Data ([facility]) Vital Signs (Past 12 Hours) Vital Signs Temp Pulse Resp BP Pulse Ox 01/18/20 23:45 36.5 C 81 16 101/63 97 01/18/20 19:05 36.4 C L 88 16 108/67 98 Review of System Denies fever, chills, sweats. Denies SOB Additional Comments: Denies chest pain, palpitations, chest pressure Denies abdominal pain Mild dysuria that has mostly resolved from yesterday. Minimal lochia. No calf pain. No back pain. No headache or changes in vision
[2020-01-19] MEDS: CALCIUM 600MG + VIT D 400 IU TAB PO SCH ×2 (08:42→20:16)
[2020-01-19] MEDS: DOCUSATE SODIUM 100 MG CAP PO SCH ×2 (08:42→20:17)
[2020-01-19] MEDS: PRENATAL VITAMIN 1 TAB PO SCH (08:42)
--- NOTE | 2020-01-20 06:25 | Obstetrical Progress Note ---
Date of Service <John Littlejohn MD - Last Filed: 01/20/20 06:55> January 20, 2020 Assessment & Plan <John Littlejohn MD - Last Filed: 01/20/20 06:55> (1) state: Ivania Lomax is a 24 y/o F who is s/p at 41w1d on 01/17/20 (PPD3), complicated by intrapartum fever just after delivery. O positive. Antibody screen negative. Rubella immune. GBS neg. is under care of nursery for respiratory distress (TTN vs RDS, less likely meconium aspiration), has received amp and gent. well, was out of levl 2 on evening of 01/18/20, and has been at mother's bedside for a day. state most recent vitals (01/19/20 2340) reviewed and wnl. 106/67. 70. 18. 36.5C. 98% RA fever curve: 39.3C x1 right after delivery. Since then, has been afebrile. Tmax 24 hrs 36.7C. Hb 12.1 on admission to 9.7 on 01/18/20, most likely secondary to the 500cc blood loss during delivery (received 800cc rectal cytotec). no new labs today - no pain. patient doing well plan: continue routine care. dispo today. Fever after delivery, resolved - see temperature discussion above. - no fever recorded prior to delivery. would likely not treat mother s/p vaginal delivery especially in context of fever not returning - as mentioned per attending note yesterday, will not follow wbc unless new symptoms. plan: monitor fever curve R superior vaginal laceration - s/p , mild, did not require sutures -some mild dysuria PPD1, attributed to this, dysuria resolved on 01/18 plan: routine care Subjective <John Littlejohn MD - Last Filed: 01/20/20 06:55> Ambulation: ambulating normally Voiding: no voiding problems Passing Gas:: Yes Diet Tolerance:: regular diet Lochia:: Small Feeding Type:: bottle feeding Current Pain Level(1-10): 0 Patient is doing well. No new complaints. Review of Systems Denies fever, chills, sweats Denies shortness of breath, chest pain, palpitations. Denies breast pain. Denies dysuria. Denies headache or changes in vision. Denies nausea/vomiting. Denies numbness, tingling, weakness. Physical Exam <John Littlejohn MD - Last Filed: 01/20/20 06:55> General: Alert, oriented. No acute distress. Cardiac: Regular rate and regular rhythm, no murmurs/rubs/gallops. Respiratory: Clear to auscultation bilaterally, no wheezes/rales/rhonchi. No respiratory distress. Abdomen: , soft, nontender. Bowel sounds present. No flank tenderness. Uterus: Uterine fundus firm, palpable 1cm below umbilicus. Lower Extremities: No LE edema. No deep calf pain. Jeff's negative bilaterally. Results & Data ([facility]) <John Littlejohn MD - Last Filed: 01/20/20 06:55> Vital Signs (Past 12 Hours) Vital Signs Temp Pulse Resp BP Pulse Ox 01/19/20 23:40 36.5 C 70 18 106/67 98 01/19/20 20:00 36.6 C 70 18 106/65 98 <Ceci Traore MD, FACOG - Last Filed: 01/20/20 07:27> Co-Signing Physician Notes Resident Physician Supervision Note: I interviewed and examined the patient. Discussed with Dr. Littlejohn and agree with findings and plan as documented in the note. Any exceptions or clarifications are listed here: Doing well. Plan d/c today. Baby doing better. INstructions reviewed. Documented By: Ceci Traore MD, FACOG
--- NOTE | 2020-01-20 06:59 | Medical Student Progress Note ---
Date of Service January 20, 2020 Assessment & Plan (1) state: Ivania is a 24 yo , PP day 3 s/p vaginal delivery post term 41 weeks 1 day complicated with fever spike right after delivery. Blood type O+, Rubella Immune. graduated from nursery. Ivania and her baby are ready to be discharged, per attendings. Fever post delivery * Spiked fever right after delivery. TMax 39.9. Has come down since then. 36.5 today. Blood loss: * Experienced about 500 cc blood loss during delivery. Continue routine care. Dysuria: * Resolved. Continue routine care. Admission and Anticipated Discharge Date Admission Date: January 17, 2020 Subjective Ivania is a 24 F, PP day 3 s/p vaginal delivery post term 41 weeks 1 day. She has been feeling well overall with no complaints of pain, specifically no breast tenderness or calf pain. She has been able to eat, ambulate, pass gas, and have normal bowel movement. Ivania is able to void normally, dysuria has completely resolved. She reposts small bloody lochia. She is in a good mood and happy to have her baby in her room, who's doing well and is no longer in nursery. Review of Systems Constitutional: no fever, no chills and no sweats . Respiratory: no dyspnea on exertion Cardiovascular: no chest pain, no dyspnea, no dyspnea on exertion and no calf pain Gastrointestinal: no abdominal pain, no nausea, no vomiting, no constipation and no diarrhea/loose stools Neurologic: no tingling, no numbness, no dizziness and no headache(s) Hematologic / Lymphatic: no night sweats Physical Exam Constitutional: WD/WN, vitals as above no acute distress looks general well, Respiratory: normal respiratory effort Auscultation: lungs clear to auscultation bilaterally; no crackles, no rhonchi and no wheezes Lung exam performed by resident. Cardiovascular: RRR, no murmur, no edema Heart Sounds: no gallop, no murmur and no cardiac rub Extremities: no calf tenderness and no pedal edema Gastrointestinal (Abdomen): Inspection/Auscultation: abdomen normal to inspection and normal bowel sounds Fundus height was difficult to feel. Browning with attending guidance at 1 cm below umbilicus. Firm. Non tender. Results & Data ([facility]) Vital Signs (Past 12 Hours) Vital Signs Temp Pulse Resp BP Pulse Ox 01/19/20 23:40 36.5 C 70 18 106/67 98 01/19/20 20:00 36.6 C 70 18 106/65 98
[2020-01-20] MEDS: CALCIUM 600MG + VIT D 400 IU TAB PO SCH (09:13)
[2020-01-20] MEDS: DOCUSATE SODIUM 100 MG CAP PO SCH (09:13)
[2020-01-20] MEDS: BENZOCAINE 20% AER SPR 82.5 GM CAN EXT PRN (09:13)
[2020-01-20] MEDS: PRENATAL VITAMIN 1 TAB PO SCH (09:13)
== END 2020-01-20 10:43 | disposition home or self-care (01) | DRG 806 ==
LOC: OPB 23:49 → 4S1 23:50 → 4S2 01-17 18:47

== ENCOUNTER 2022-09-19 07:27 | Inpatient (IN) ==
[2022-09-19] MEDS ORDERED: OXYTOCIN 30 UNITS/500 ML BAG IV PRN ×3 (08:46→19:15)
[2022-09-19] MEDS ORDERED: LIDOCAINE 1% LOCAL 20 ML VIAL INFIL PRN (08:46)
--- NOTE | 2022-09-19 08:52 | History & Physical Report ---
Date of Service September 19, 2022 Assessment & Plan (1) Encounter for induction of labor: (2) Gestational diabetes: Plan admit, iv, labs. fhts categ 1, start pit, arom done. epidural when desires. Admission and Anticipated Discharge Date Admission Date: September 19, 2022 History of Present Illness Chief Complaint: induction Primary Care Provider: NO PCP 26yo at 39+wks ega present to L&D for planned induction of labor, elective. No rom, no vb. +FM. No ctx. PNC c/b 1. GDM, diet controlled. last efw 55% 2. fam h/o CHD, echo normal PNL rh pos, ri, gbs neg OBH: x 1, meconium aspiration syndrome GYNH: nl paps, no stds Allergies Allergy/AdvReac Type Severity Reaction Status Date / Time amoxicillin Allergy Unknown Unsure Verified 09/18/22 20:06 Penicillins Allergy Unknown Unsure Verified 09/18/22 20:06 Home Medications Medication Instructions Recorded Confirmed Type prenat.vits,song,hzr-[id number] 1 tab PO DAILY 12/24/19 09/18/22 History acetone (urine) test (Ketone Urine #50 ea 08/01/22 09/16/22 Rx Test strips) blood sugar diagnostic (OneTouch #150 ea 08/01/22 09/16/22 Rx Verio test strips) lancets 33 gauge (OneTouch Delica #150 ea 08/01/22 09/16/22 Rx Lancets) blood-glucose meter (OneTouch #1 ea 08/06/22 09/16/22 Rx Verio Reflect Meter) Patient History Medical History (Updated 09/19/22 @ 08:53 by Karon Randhawa MD, FACOG) Hx of varicella Surgical History H/O wisdom tooth extraction History of tonsillectomy and adenoidectomy Family History Mother Breast cancer Social History Smoking Status: Never smoker Second Hand Exposure: No; Do You Dip or Chew Tobacco: No; Hx Alcohol Use: No Hx Substance Use: No Preferred Language: Azerbaijani Communication Ability: Effective Speed Runner Required: No Beliefs That Will Affect Care: None marital status: marital status details: Tomas Wilcox (27) [phone] Current Living Situation: Spouse and Family Current Living Situation Comment: lives with FOB , 2 children no pets. current occupational status: unemployed current occupation: Stay at home mom Feels Safe at Home: Yes Assistive Devices: None Review of Systems as per Subjective / HPI Physical Exam Constitutional: WD/WN, vitals as above Respiratory: normal respiratory effort, lungs clear to auscultation Cardiovascular: Rate/Rhythm: regular rate and regular rhythm Gastrointestinal (Abdomen): soft gravid nt efw 7-8# Musculoskeletal: no edema nontender calves Neurologic: grossly normal Psychiatric: A+Ox3, euthymic affect Genitourinary: Manual OB Exam: + cervical dilation (2-3), + cervical effacement 50%, + station -2 and + amniotic fluid (arom) clear OB Exam Monitor Tracing: + external FHT monitor used, + external uterine monitor used (irreg), + category I and + normal FHT variability Results & Data Vital Signs (Past 12 Hours) Vital Signs Temp Pulse Resp BP 09/19/22 08:15 97.7 F 20 115/78 09/19/22 07:37 93 H 115/78 Coding Level of Care Code None Diagnoses Encounter for induction of labor Z34.90 Gestational diabetes O24.419
[2022-09-19] MEDS: LACTATED RINGER'S 1,000 ML IV PRN ×3 (08:58→16:39)
[2022-09-19 09:28] LABS: Hematocrit (blood only) 31.4 % (37.0-47.0); Hemoglobin 10.2 g/dl (12.0-16.0); Mean Corpuscular Hemoglobin 26.1 pg (25.0-34.0); Mean Corpuscular Hgb Conc 32.5 g/dL (32.0-36.0); Mean Corpuscular Volume 80.3 fL (80.0-100.0); Mean Platelet Volume 9.5 fL (9.4-12.4); Platelet Count 365 K/uL (130-400); RDW Coefficient of Variation 14.2 % (11.5-14.5); RDW Standard Deviation 41.2 fL (36.4-46.3); Red Blood Count 3.91 M/uL (4.20-5.40); White Blood Count 10.41 K/ul (4.8-10.8)
[2022-09-19] MEDS ORDERED: SODIUM CHLORIDE 0.9% PF INJ 10 ML VIAL ONE (12:49)
[2022-09-19] MEDS ORDERED: BUPIVACAINE 0.25% PF 30 ML VIAL ONE (12:49)
[2022-09-19] MEDS ORDERED: fentaNYL citrate PF 100 MCG/2 ML VIAL ONE (12:49)
[2022-09-19] MEDS ORDERED: LIDOCAINE 2%/EPINEPHRINE 1:200,000 20 ML PF ONE (12:50)
[2022-09-19] MEDS ORDERED: fentaNYL 2MCG/ML ROPIVACAINE 1.25MG/ML 100 ML BAG EPI ONE (12:50)
[2022-09-19] MEDS ORDERED: ePHEDrine sulfate 50 MG/ML AMP ONE (12:51)
[2022-09-19] MEDS ORDERED: BUPIVACAINE 0.25% PF 30 ML VIAL EPI PRN (12:54)
[2022-09-19] MEDS ORDERED: fentaNYL citrate PF 100 MCG/2 ML VIAL EPI PRN (12:54)
[2022-09-19] MEDS ORDERED: SODIUM CHLORIDE 0.9% PF INJ 10 ML VIAL EPI PRN (12:54)
[2022-09-19] MEDS ORDERED: LIDOCAINE 2% MPF LOCAL 5 ML VIAL EPI PRN (12:54)
[2022-09-19] MEDS ORDERED: ePHEDrine sulfate 50 MG/ML AMP IV PRN (12:54)
[2022-09-19] MEDS ORDERED: ONDANSETRON INJ 2 MG/ML 2 ML VIAL IV PRN (12:54)
[2022-09-19] MEDS ORDERED: LIDOCAINE 2%/EPINEPHRINE 1:200,000 20 ML PF EPI STA (12:54)
[2022-09-19] MEDS ORDERED: diphenhydrAMINE 50 MG/ML VIAL IV PRN (12:54)
[2022-09-19] MEDS ORDERED: BUPIVACAINE 0.25% PF 30 ML VIAL EPI STA (12:54)
[2022-09-19] MEDS ORDERED: SODIUM CHLORIDE 0.9% PF INJ 10 ML VIAL EPI STA (12:54)
[2022-09-19] MEDS ORDERED: ROPIVACAINE 0.5% PF 5 MG/ML 20 ML VIAL EPI PRN (12:54)
[2022-09-19] MEDS ORDERED: fentaNYL citrate PF 100 MCG/2 ML VIAL EPI STA (12:54)
[2022-09-19] MEDS ORDERED: NALBUPHINE HCL INJ 10 MG/ML AMP IV PRN (12:54)
[2022-09-19] MEDS ORDERED: fentaNYL 2MCG/ML ROPIVACAINE 1.25MG/ML 100 ML BAG EPI PRN (12:54)
[2022-09-19] MEDS ORDERED: NALOXONE HCL 1 MG in SODIUM CHLORIDE 0.9% 1000ML 1,000 ML IV PRN (12:54)
[2022-09-19] MEDS ORDERED: NALOXONE HCL 0.4 MG/1 ML VIAL/CARP IV PRN (12:54)
--- NOTE | 2022-09-19 14:19 | Labor Progress Brief Note ---
Date of Service September 19, 2022 Subjective ctsp by nursing, due to ?decels, ? late decels, position change making hard to trace ctx and fetus. pt comfortable since epidural. getting ivf bolus due to low bp Assessment & Plan (1) Encounter for induction of labor: (2) Gestational diabetes: Plan internal monitors placed. reposition, ivf. will need to see if decels persist and if late decels, dc pitocin. Admission and Anticipated Discharge Date Admission Date: September 19, 2022 Physical Exam Constitutional: WD/WN, vitals as above Genitourinary: Manual OB Exam: + cervical dilation 5 cm, + cervical effacement 50% and + station -2 OB Exam Monitor Tracing: + external FHT monitor used, + scalp electrode used (fse applied and +scalp stim response, +variable decel, ? late decel), + external uterine monitor used (q3 pit at 11), + intra- uterine pressure catheter used (IUPC placed. ) and + normal FHT variability Results & Data Vital Signs (Past 12 Hours) Vital Signs Temp Pulse Resp BP Pulse Ox 09/19/22 08:15 97.7 F 20 115/78 09/19/22 14:13 82 09/19/22 14:13 117/66 09/19/22 14:10 98 09/19/22 14:10 82 09/19/22 14:05 97 09/19/22 14:05 85 09/19/22 14:04 80 09/19/22 14:04 98/55 L 09/19/22 14:00 95 09/19/22 14:00 90 09/19/22 13:55 96 09/19/22 13:55 79 09/19/22 13:50 97 09/19/22 13:50 89 09/19/22 13:49 84 09/19/22 13:49 94/53 L 09/19/22 13:46 82 09/19/22 13:46 116/61 09/19/22 13:45 95 09/19/22 13:45 90 09/19/22 13:43 79 09/19/22 13:43 119/61 09/19/22 13:40 96 09/19/22 13:40 80 09/19/22 13:40 116/60 09/19/22 13:37 108 H 09/19/22 13:37 115/69 09/19/22 13:35 96 09/19/22 13:35 76 09/19/22 13:34 95 H 09/19/22 13:34 115/72 09/19/22 13:30 97 09/19/22 13:30 91 H 09/19/22 13:31 81 09/19/22 13:31 105/59 L 09/19/22 13:28 77 09/19/22 13:28 105/57 L 09/19/22 13:25 97 09/19/22 13:25 80 09/19/22 13:25 83 09/19/22 13:25 105/56 L 09/19/22 13:22 77 09/19/22 13:22 104/54 L 09/19/22 13:20 98 09/19/22 13:20 85 09/19/22 13:19 83 09/19/22 13:19 114/55 L 09/19/22 13:16 100 H 09/19/22 13:16 120/59 L 09/19/22 13:15 97 09/19/22 13:15 100 H 09/19/22 13:13 96 H 09/19/22 13:13 114/59 L 09/19/22 13:10 98 09/19/22 13:10 85 09/19/22 13:10 123/77 09/19/22 13:07 92 H 09/19/22 13:07 124/72 09/19/22 13:05 99 09/19/22 13:05 90 09/19/22 13:04 96 H 09/19/22 13:04 119/72 09/19/22 13:00 99 09/19/22 13:00 107 H 09/19/22 13:01 96 H 09/19/22 13:01 127/73 09/19/22 12:55 98 09/19/22 12:55 93 H 09/19/22 11:48 91 H 09/19/22 11:48 116/63 09/19/22 11:46 18 09/19/22 11:46 97.5 F L 18 09/19/22 11:46 90 09/19/22 11:46 117/67 09/19/22 10:20 18 09/19/22 10:20 18 09/19/22 09:50 18 09/19/22 09:50 18 09/19/22 09:20 18 09/19/22 09:20 18 09/19/22 08:20 18 09/19/22 08:20 18 09/19/22 09:22 96 H 09/19/22 09:22 114/69 09/19/22 07:37 93 H 115/78 Coding Level of Care Code None Diagnoses Encounter for induction of labor Z34.90 Gestational diabetes O24.419
--- NOTE | 2022-09-19 15:29 | Communication Note ---
Date of Service: September 19, 2022 strip review fhts 135 +accels good variability categ 1, pit at 13 toco q 3 c/w induction.
--- NOTE | 2022-09-19 16:35 | Anesthesiology Consultation ---
Date of Service September 19, 2022 Assessment & Plan Chart Review Chart Review: Patient NOT seen in Pre Admission Testing and Acceptable Risk for Labor Epidural Consults Requested none ASA ASA2 Proposed Anesthesia Anesthesia Type: Labor Epidural Risk / Benefits Reviewed With: PT / POA / Parent / Guardian, Accepts Plan and Informed Consent Obtained History Height/Weight Height: 5 ft 4 in Weight: 94.432 kg Allergies Allergy/AdvReac Type Severity Reaction Status Date / Time amoxicillin Allergy Unknown Unsure Verified 09/18/22 20:06 Penicillins Allergy Unknown Unsure Verified 09/18/22 20:06 Medications Home Medications Medication Instructions Recorded Confirmed Last Taken prenat.vits,song,yle-rgyf-taqqf 1 tab PO DAILY 12/24/19 09/19/22 09/17/22 08:00 acetone (urine) test (Ketone Urine #50 ea 08/01/22 09/16/22 Unknown Test strips) blood sugar diagnostic (OneTouch #150 ea 08/01/22 09/16/22 Unknown Verio test strips) lancets 33 gauge (OneTouch Delica #150 ea 08/01/22 09/16/22 Unknown Lancets) blood-glucose meter (OneTouch #1 ea 08/06/22 09/16/22 Unknown Verio Reflect Meter) Active Medications Generic Name Dose Route Start Last Admin Trade Name Freq PRN Reason Stop Dose Admin Lactated Ringer's 1,000 mls @ 125 mls/hr 09/19/22 08:46 09/19/22 14:25 Lr IV 09/21/22 08:45 125 mls/hr .Q8H PRN Infusion L&D Protocol Protocol Oxytocin 30 units in 500 mls @ 15 mls/hr 09/19/22 08:46 09/19/22 15:34 Pitocin IV 09/21/22 08:45 0.9 units/hr .Q24H PRN 15 mls/hr Labor Induction/Augmentation Titration Protocol 0.9 UNITS/HR Ropivacaine 100 ml 09/19/22 12:54 09/19/22 13:12 Fentanyl 2mcg/Ml Ropivacaine 1.25mg/Ml 100 Ml Bag EPI 09/20/22 12:53 100 ml PRN PRN Administration Pain R/T Labor Protocol Past Medical History Medical History (Updated 09/19/22 @ 08:53 by Karon Randhawa MD, FACOG) Hx of varicella Exercise / Class Metabolic Activity II 4-5 Yardwork/Stairs/Walk up hill Past Family History Family History Mother Breast cancer Past Surgical History Surgical History H/O wisdom tooth extraction History of tonsillectomy and adenoidectomy Past Anesthesia History No Hx of Anesthesia Complications and No Family Hx of Anesthesia Complications History of PONV No Hx of PONV and No Hx of Motion Sickness Social History Smoking Status: Never smoker Do You Dip or Chew Tobacco: No Hx Alcohol Use: No Hx Substance Use: No substance use type: does not use Physical Exam Vital Signs Last Vital Signs Temp 36.4 C L 09/19/22 11:46 Pulse 113 H 09/19/22 16:30 Resp 18 09/19/22 15:50 BP 121/60 09/19/22 16:19 Pulse Ox 97 09/19/22 16:30 ENMT Mouth: no dentition abnormality Thyromental Distance: > or= 3.5 Finger Breadths Mallampati Class: II Neck normal visual inspection Respiratory normal respiratory effort Auscultation: lungs clear to auscultation bilaterally Cardiovascular Rate/Rhythm: regular rate and regular rhythm Psychiatric Orientation: alert Testing Laboratory Results 09/19/22 09:04 Blood Type O Positive 09/19/22 09:04 Antibody Screen NEGATIVE 09/19/22 09:04 09/19/22 09/19/22 09/19/22 14:24 12:02 08:12 POC Glucose 78 88 115 H
--- NOTE | 2022-09-19 17:11 | Labor Progress Brief Note ---
Date of Service September 19, 2022 Subjective pt comfortable Assessment & Plan (1) Gestational diabetes: (2) Encounter for induction of labor: Plan no cx change per recent exam by nurse. categ 1 fhts. inadeq mvu's, will c/w pit to achieve adeq mvus. pt aware of plan and agreeable. Admission and Anticipated Discharge Date Admission Date: September 19, 2022 Physical Exam Constitutional: WD/WN, vitals as above Genitourinary: Manual OB Exam: + cervical dilation (per nurse no change to exam) 5 cm OB Exam Monitor Tracing: + scalp electrode used, + intra- uterine pressure catheter used (inadeq mvus pit at 17), + category I and + normal FHT variability Results & Data Vital Signs (Past 12 Hours) Vital Signs Temp Pulse Resp BP Pulse Ox 09/19/22 08:15 97.7 F 20 115/78 09/19/22 17:07 94 09/19/22 17:07 86 09/19/22 17:05 97 09/19/22 17:05 95 H 09/19/22 17:04 92 H 09/19/22 17:04 100/56 L 09/19/22 17:00 96 09/19/22 17:00 82 09/19/22 16:55 100 09/19/22 16:55 82 09/19/22 16:51 83 09/19/22 16:51 108/59 L 09/19/22 16:50 97 09/19/22 16:50 93 H 09/19/22 16:45 97 09/19/22 16:45 87 09/19/22 16:40 96 09/19/22 16:40 83 09/19/22 16:35 96 09/19/22 16:35 82 09/19/22 16:35 98/67 L 09/19/22 16:30 97 09/19/22 16:30 113 H 09/19/22 16:25 96 09/19/22 16:25 86 09/19/22 16:20 96 09/19/22 16:20 88 09/19/22 16:19 88 09/19/22 16:19 121/60 09/19/22 16:15 96 09/19/22 16:15 110 H 09/19/22 16:10 96 09/19/22 16:10 87 09/19/22 16:05 97 09/19/22 16:05 87 09/19/22 16:04 94 H 09/19/22 16:04 114/59 L 09/19/22 15:50 18 09/19/22 15:50 18 09/19/22 16:00 98 09/19/22 16:00 90 09/19/22 15:55 95 09/19/22 15:55 85 09/19/22 15:50 97 09/19/22 15:50 78 09/19/22 15:49 75 09/19/22 15:49 114/60 09/19/22 15:45 96 09/19/22 15:45 94 H 09/19/22 15:40 97 09/19/22 15:40 104 H 09/19/22 15:34 16 09/19/22 15:34 16 09/19/22 15:35 97 09/19/22 15:35 78 09/19/22 15:35 80 09/19/22 15:35 119/62 09/19/22 15:30 98 09/19/22 15:30 86 09/19/22 15:25 97 09/19/22 15:25 106 H 09/19/22 15:20 97 09/19/22 15:20 85 09/19/22 15:21 88 09/19/22 15:21 117/62 09/19/22 14:50 18 09/19/22 14:50 18 09/19/22 15:15 95 09/19/22 15:15 96 H 09/19/22 13:50 18 09/19/22 13:50 18 09/19/22 15:10 95 09/19/22 15:10 86 09/19/22 15:05 95 09/19/22 15:05 77 09/19/22 15:04 91 H 09/19/22 15:04 117/09/19/22 15:00 96 09/19/22 15:00 82 09/19/22 15:00 94 09/19/22 15:00 84 09/19/22 14:55 16 09/19/22 14:55 16 09/19/22 14:55 96 09/19/22 14:55 87 09/19/22 14:50 95 09/19/22 14:50 86 05/23 14:49 84 09/19/22 14:49 110/56 L 09/19/22 14:45 95 09/19/22 14:45 81 09/19/22 14:40 95 09/19/22 14:40 84 09/19/22 14:35 98 09/19/22 14:35 78 09/19/22 14:35 75 09/19/22 14:35 124/59 L 09/19/22 14:30 100 09/19/22 14:30 104 H 09/19/22 14:25 99 09/19/22 14:25 81 09/19/22 14:20 98 09/19/22 14:20 75 09/19/22 14:19 71 09/19/22 14:19 121/67 09/19/22 14:15 98 09/19/22 14:15 90 09/19/22 14:13 82 09/19/22 14:13 117/66 09/19/22 14:10 98 09/19/22 14:10 82 09/19/22 14:05 97 09/19/22 14:05 85 09/19/22 14:04 80 09/19/22 14:04 98/55 L 09/19/22 14:00 95 09/19/22 14:00 90 09/19/22 13:55 96 09/19/22 13:55 79 09/19/22 13:50 97 09/19/22 13:50 89 09/19/22 13:49 84 09/19/22 13:49 94/53 L 09/19/22 13:46 82 09/19/22 13:46 116/61 09/19/22 13:45 95 09/19/22 13:45 90 09/19/22 13:43 79 09/19/22 13:43 119/61 09/19/22 13:40 96 09/19/22 13:40 80 05 13:40 116/60 09/19/22 13:37 108 H 09/19/22 13:37 115/69 09/19/22 13:35 96 09/19/22 13:35 76 09/19/22 13:34 95 H 09/19/22 13:34 115/72 09/19/22 13:30 97 09/19/22 13:30 91 H 09/19/22 13:31 81 09/19/22 13:31 105/59 L 09/19/22 13:28 77 09/19/22 13:28 105/57 L 09/19/22 13:25 97 09/19/22 13:25 80 09/19/22 13:25 83 09/19/22 13:25 105/56 L 09/19/22 13:22 77 09/19/22 13:22 104/54 L 09/19/22 13:20 98 09/19/22 13:20 85 09/19/22 13:19 83 09/19/22 13:19 114/55 L 09/19/22 13:16 100 H 09/19/22 13:16 120/59 L 09/19/22 13:15 97 09/19/22 13:15 100 H 09/19/22 13:13 96 H 09/19/22 13:13 114/59 L 09/19/22 13:10 98 09/19/22 13:10 85 09/19/22 13:10 123/77 09/19/22 13:07 92 H 09/19/22 13:07 124/72 09/19/22 13:05 99 09/19/22 13:05 90 09/19/22 13:04 96 H 09/19/22 13:04 119/72 09/19/22 13:00 99 09/19/22 13:00 107 H 09/19/22 13:01 96 H 09/19/22 13:01 127/73 09/19/22 12:55 98 09/19/22 12:55 93 H 09/19/22 11:48 91 H 09/19/22 11:48 116/63 09/19/22 11:46 18 09/19/22 11:46 97.5 F L 18 09/19/22 11:46 90 09/19/22 11:46 117/67 09/19/22 10:20 18 09/19/22 10:20 18 09/19/22 09:50 18 09/19/22 09:50 18 09/19/22 09:20 18 09/19/22 09:20 18 09/19/22 08:20 18 09/19/22 08:20 18 09/19/22 09:22 96 H 09/19/22 09:22 114/69 09/19/22 07:37 93 H 115/78 Coding Level of Care Code None Diagnoses Gestational diabetes O24.419 Encounter for induction of labor Z34.90
--- NOTE | 2022-09-19 18:32 | Labor Progress Brief Note ---
Date of Service September 19, 2022 Subjective ctsp by nursing due to bright red blood with small clots on exam, cx 7cm. Assessment & Plan (1) Encounter for induction of labor: (2) Gestational diabetes: Plan suspect blood from rapid cx change. expect 2nd stage soon. fhts categ 2. +scalp stim response. Admission and Anticipated Discharge Date Admission Date: September 19, 2022 Physical Exam Constitutional: WD/WN, vitals as above Genitourinary: Manual OB Exam: + cervical dilation (rim), + cervical effacement 100% and + station + 1 OB Exam Monitor Tracing: + scalp electrode used, + intra-uterine pressure catheter used and + category II (variable, +scalp stim response) Results & Data Vital Signs (Past 12 Hours) Vital Signs Temp Pulse Resp BP Pulse Ox 09/19/22 08:15 97.7 F 20 115/78 09/19/22 18:24 18 09/19/22 18:24 18 09/19/22 18:25 98 09/19/22 18:25 104 H 09/19/22 18:20 98 09/19/22 18:20 87 09/19/22 18:21 90 09/19/22 18:21 121/61 09/19/22 18:15 98 09/19/22 18:15 81 09/19/22 18:10 97 09/19/22 18:10 81 09/19/22 18:05 98 09/19/22 18:05 98 H 09/19/22 18:04 96 H 09/19/22 18:04 107/56 L 09/19/22 18:00 97 09/19/22 18:00 82 09/19/22 17:50 18 09/19/22 17:50 18 09/19/22 17:20 18 09/19/22 17:20 18 09/19/22 17:55 95 09/19/22 17:55 83 09/19/22 16:20 18 09/19/22 16:20 18 09/19/22 17:50 97 09/19/22 17:50 84 09/19/22 17:50 84 09/19/22 17:50 105/55 L 09/19/22 17:45 98 09/19/22 17:45 82 09/19/22 17:40 99 09/19/22 17:40 84 09/19/22 17:35 98 09/19/22 17:35 88 09/19/22 17:34 85 09/19/22 17:34 110/56 L 09/19/22 17:30 99 09/19/22 17:30 94 H 09/19/22 17:25 98 09/19/22 17:25 91 H 09/19/22 17:20 95 09/19/22 17:20 81 09/19/22 17:20 88 09/19/22 17:20 108/53 L 09/19/22 17:18 93 09/19/22 17:18 100 H 09/19/22 17:15 95 09/19/22 17:15 87 09/19/22 17:13 94 09/19/22 17:13 88 09/19/22 17:10 95 09/19/22 17:10 91 H 09/19/22 17:07 94 09/19/22 17:07 86 09/19/22 17:05 97 09/19/22 17:05 95 H 09/19/22 17:04 92 H 09/19/22 17:04 100/56 L 09/19/22 17:00 96 09/19/22 17:00 82 09/19/22 16:55 100 09/19/22 16:55 82 09/19/22 16:51 83 09/19/22 16:51 108/59 L 09/19/22 16:50 97 09/19/22 16:50 93 H 09/19/22 16:45 97 09/19/22 16:45 87 09/19/22 16:40 96 09/19/22 16:40 83 09/19/22 16:35 96 09/19/22 16:35 82 09/19/22 16:35 98/67 L 09/19/22 16:30 97 09/19/22 16:30 113 H 09/19/22 16:25 96 09/19/22 16:25 86 09/19/22 16:20 96 09/19/22 16:20 88 09/19/22 16:19 88 09/19/22 16:19 121/60 09/19/22 16:15 96 09/19/22 16:15 110 H 09/19/22 16:10 96 09/19/22 16:10 87 05/04/23 16:05 97 09/19/22 16:05 87 09/19/22 16:04 94 H 09/19/22 16:04 114/59 L 09/19/22 15:50 18 09/19/22 15:50 18 09/19/22 16:00 98 09/19/22 16:00 90 09/19/22 15:55 95 09/19/22 15:55 85 09/19/22 15:50 97 09/19/22 15:50 78 09/19/22 15:49 75 09/19/22 15:49 114/60 09/19/22 15:45 96 09/19/22 15:45 94 H 09/19/22 15:40 97 09/19/22 15:40 104 H 09/19/22 15:34 16 09/19/22 15:34 16 09/19/22 15:35 97 09/19/22 15:35 78 09/19/22 15:35 80 09/19/22 15:35 119/62 09/19/22 15:30 98 09/19/22 15:30 86 09/19/22 15:25 97 09/19/22 15:25 106 H 09/19/22 15:20 97 09/19/22 15:20 85 09/19/22 15:21 88 09/19/22 15:21 117/09/19/22 14:50 18 09/19/22 14:50 18 09/19/22 15:15 95 09/19/22 15:15 96 H 09/19/22 13:50 18 09/19/22 13:50 18 09/19/22 15:10 95 09/19/22 15:10 86 09/19/22 15:05 95 09/19/22 15:05 77 09/19/22 15:04 91 H 09/19/22 15:04 117/09/19/22 15:00 96 09/19/22 15:00 82 09/19/22 15:00 94 09/19/22 15:00 84 09/19/22 14:55 16 09/19/22 14:55 16 09/19/22 14:55 96 09/19/22 14:55 87 09/19/22 14:50 95 09/19/22 14:50 86 09/19/22 14:49 84 09/19/22 14:49 110/56 L 09/19/22 14:45 95 09/19/22 14:45 81 09/19/22 14:40 95 09/19/22 14:40 84 09/19/22 14:35 98 09/19/22 14:35 78 09/19/22 14:35 75 09/19/22 14:35 124/59 L 09/19/22 14:30 100 09/19/22 14:30 104 H 09/19/22 14:25 99 09/19/22 14:25 81 09/19/22 14:20 98 09/19/22 14:20 75 09/19/22 14:19 71 09/19/22 14:19 121/67 09/19/22 14:15 98 09/19/22 14:15 90 09/19/22 14:13 82 09/19/22 14:13 117/66 09/19/22 14:10 98 09/19/22 14:10 82 09/19/22 14:05 97 09/19/22 14:05 85 09/19/22 14:04 80 09/19/22 14:04 98/55 L 09/19/22 14:00 95 09/19/22 14:00 90 09/19/22 13:55 96 09/19/22 13:55 79 09/19/22 13:50 97 09/19/22 13:50 89 09/19/22 13:49 84 09/19/22 13:49 94/53 L 09/19/22 13:46 82 09/19/22 13:46 116/61 09/19/22 13:45 95 09/19/22 13:45 90 09/19/22 13:43 79 09/19/22 13:43 119/61 09/19/22 13:40 96 09/19/22 13:40 80 05 13:40 116/60 09/19/22 13:37 108 H 09/19/22 13:37 115/69 09/19/22 13:35 96 09/19/22 13:35 76 09/19/22 13:34 95 H 09/19/22 13:34 115/72 05 13:30 97 05/04/23 13:30 91 H 09/19/22 13:31 81 09/19/22 13:31 105/59 L 09/19/22 13:28 77 09/19/22 13:28 105/57 L 09/19/22 13:25 97 09/19/22 13:25 80 09/19/22 13:25 83 09/19/22 13:25 105/56 L 09/19/22 13:22 77 09/19/22 13:22 104/54 L 09/19/22 13:20 98 09/19/22 13:20 85 09/19/22 13:19 83 09/19/22 13:19 114/55 L 09/19/22 13:16 100 H 09/19/22 13:16 120/59 L 09/19/22 13:15 97 09/19/22 13:15 100 H 09/19/22 13:13 96 H 09/19/22 13:13 114/59 L 09/19/22 13:10 98 09/19/22 13:10 85 09/19/22 13:10 123/77 09/19/22 13:07 92 H 09/19/22 13:07 124/72 09/19/22 13:05 99 09/19/22 13:05 90 09/19/22 13:04 96 H 09/19/22 13:04 119/72 09/19/22 13:00 99 09/19/22 13:00 107 H 09/19/22 13:01 96 H 09/19/22 13:01 127/73 09/19/22 12:55 98 09/19/22 12:55 93 H 09/19/22 11:48 91 H 09/19/22 11:48 116/63 09/19/22 11:46 18 09/19/22 11:46 97.5 F L 18 09/19/22 11:46 90 09/19/22 11:46 117/67 09/19/22 10:20 18 09/19/22 10:20 18 09/19/22 09:50 18 09/19/22 09:50 18 09/19/22 09:20 18 09/19/22 09:20 18 09/19/22 08:20 18 09/19/22 08:20 18 09/19/22 09:22 96 H 09/19/22 09:22 114/69 09/19/22 07:37 93 H 115/78 Coding Level of Care Code None Diagnoses Encounter for induction of labor Z34.90 Gestational diabetes O24.419
--- NOTE | 2022-09-19 19:13 | Delivery Summary ---
Vaginal Delivery Summary Date of Service September 19, 2022 Vaginal Delivery Summary The patient dilated to complete and pushed to deliver a viable female Apgars 8 and 9 via over intact perineum. Mouth and nose bulb suctioned at perineum. Loose nuchal x 1 delivered through. Shoulders and body delivered with ease. Infant was vigorous and crying at . Cord clamped at 30 seconds of life and infant to maternal abdomen where the cord was then doubly clamped and cut. Placenta delivered spontaneously and intact, three-vessel cord. Hemostasis achieved with dilute pitocin and uterine massage and drainage of the bladder for approximately 300 cc under sterile conditions. Cervix and sulci intact. EBL 300 cc. Mother and baby stable in recovery. [facility] Vaginal Delivery Charge Delivery Type Details:
[2022-09-19] MEDS ORDERED: HYDROCORTISONE ACETATE 25 MG SUPP PR PRN (19:15)
[2022-09-19] MEDS ORDERED: IBUPROFEN 600 MG TAB PO PRN (19:15)
[2022-09-19] MEDS ORDERED: bisacodyL 10 MG SUPP PR PRN (19:15)
[2022-09-19] MEDS ORDERED: DIPHTHERIA/TETANUS/PERTUSSIS 0.5mL SYR/VIAL (Age 7+yrs) IM ONE (19:15)
[2022-09-19] MEDS ORDERED: oxyCODONE/ACETAMINOPHEN 5mg/325mg TAB PO PRN (19:15)
[2022-09-19] MEDS ORDERED: BENZOCAINE 20% AER SPR 82.5 GM CAN EXT PRN (19:15)
[2022-09-19] MEDS ORDERED: ACETAMINOPHEN 325 MG TAB PO PRN (19:15)
[2022-09-19] MEDS ORDERED: OXYTOCIN 20 UNITS in LACTATED RINGER'S 1,000 ML IV SCH (19:30)
--- NOTE | 2022-09-19 20:16 | Anesthesia Procedure Note ---
Date of Service September 19, 2022 Anesthesia Post Epidural Note Vital Signs Vital Signs: Temp Pulse Resp BP Pulse Ox 36.6 C 96 H 18 119/71 100 09/19/22 18:31 09/19/22 20:11 09/19/22 19:56 09/19/22 20:11 09/19/22 19:05 Pain Intensity Abdomen: Pain Intensity: 0 Notes Mental Status: alert / awake / arousable Nausea / Vomiting: adequately controlled Pain: adequately controlled Airway Patency, RR, SpO2: stable & adequate BP & HR: stable & adequate Hydration State: stable & adequate Neuraxial Anesthesia: was administered and sensory block is resolving Anesthetic Complications: no major complications apparent and Pt Satisfied with anesthetic care Epidural: Removed without complications and With tip intact
[2022-09-19] MEDS: DOCUSATE SODIUM 100 MG CAP PO SCH (21:00)
--- NOTE | 2022-09-20 07:06 | Obstetrical Progress Note ---
Date of Service September 20, 2022 Assessment & Plan (1) Gestational diabetes: (2) Encounter for supervision of normal in multigravida, antepartum: Tiara Redd is a 26 y/o female who is PPD #1 following delivery at 40 weeks. -Meeting all milestones -Vital signs reviewed and WNL -Follow up in 6 weeks for appointment -Continue routine care -Patient interested in d/c later today Admission and Anticipated Discharge Date Admission Date: September 19, 2022 Supervising Physician Co-Signing Physician Notes Resident Physician Supervision Note: I was present with Dr. Chaves during the history and exam. I discussed the case with the resident and agree with the findings and plan as documented in the note. Any exceptions or clarifications are listed here: stable, ready for dc later today. instructions reviewed. f/u 6 wkpp. abd soft ff 2 down nt, ext nt calves. bottle, rhpos, ri. Documented By: Karon Randhawa MD, FACOG Subjective Ivania is a 26 y/o female who is PPD #1 following delivery at 40 weeks. She reports feeling well overall this morning. Notes abdominal cramping but overall pain well managed on analgesics. Voiding without issue. Tolerating meals overnight and able to ambulate some. Has some persistent lochia with some improvement this morning. Currently formula feeding. Review of Systems Constitutional: no fever, no chills and no sweats Respiratory: no cough, no dyspnea and no wheezing Cardiovascular: no chest pain, no palpitations and no calf pain Genitourinary: no dysuria Neurologic: no headache(s) Physical Exam Constitutional: WD/WN, vitals as above no acute distress Respiratory: no respiratory distress Auscultation: lungs clear to auscultation bilaterally; no rales, no rhonchi and no wheezes Cardiovascular: RRR, no murmur, no edema Extremities: no calf tenderness and no edema Negative Jeff's sign bilaterally. Gastrointestinal (Abdomen): Inspection/Auscultation: normal bowel sounds Genitourinary: Uterine fundus firm, palpable below the umbilicus. Results & Data Vital Signs (Past 12 Hours) Vital Signs Temp Pulse Pulse Resp BP BP Pulse Ox 09/20/22 03:30 36.5 C 80 18 103/63 97 09/19/22 23:25 37.1 C 99 H 18 106/57 L 97 09/19/22 21:50 37.3 C 103 H 18 110/67 97 09/19/22 21:11 18 09/19/22 21:11 18 09/19/22 21:11 102 H 09/19/22 21:11 110/55 L 09/19/22 20:57 96 H 09/19/22 20:57 108/56 L 09/19/22 20:41 18 09/19/22 20:41 18 09/19/22 20:41 107 H 09/19/22 20:41 119/66 09/19/22 20:11 18 09/19/22 20:11 18 09/19/22 20:26 108 H 09/19/22 20:26 120/65 09/19/22 20:11 96 H 09/19/22 20:11 119/71 09/19/22 19:56 18 09/19/22 19:56 18 09/19/22 19:56 105 H 09/19/22 19:56 116/72 09/19/22 19:41 18 09/19/22 19:41 18 09/19/22 19:41 116 H 09/19/22 19:41 106/64 09/19/22 19:30 18 09/19/22 19:30 18 09/19/22 19:30 104 H 09/19/22 19:30 114/68 09/19/22 19:12 18 09/19/22 19:12 18 09/19/22 19:12 107 H 09/19/22 19:12 131/63 09/19/22 19:05 100 09/19/22 19:05 98 H 09/19/22 19:05 132/58 L O2 Del Method 09/20/22 03:30 Room Air 09/19/22 23:25 Room Air 09/19/22 21:50 Room Air 09/19/22 21:11 09/19/22 21:11 09/19/22 21:11 09/19/22 21:11 09/19/22 20:57 09/19/22 20:57 09/19/22 20:41 09/19/22 20:41 09/19/22 20:41 09/19/22 20:41 09/19/22 20:11 09/19/22 20:11 09/19/22 20:26 09/19/22 20:26 09/19/22 20:11 09/19/22 20:11 09/19/22 19:56 09/19/22 19:56 09/19/22 19:56 09/19/22 19:56 09/19/22 19:41 09/19/22 19:41 09/19/22 19:41 09/19/22 19:41 09/19/22 19:30 09/19/22 19:30 09/19/22 19:30 09/19/22 19:30 09/19/22 19:12 09/19/22 19:12 09/19/22 19:12 09/19/22 19:12 09/19/22 19:05 09/19/22 19:05 09/19/22 19:05 Resident Activity Tracking Resident Involvement: Resident Care Provided Care Provided: OB Delivery
[2022-09-20] MEDS ORDERED: PRENATAL VITAMIN 1 TAB PO SCH (08:00)
[2022-09-20] MEDS: DOCUSATE SODIUM 100 MG CAP PO SCH (08:46)
== END 2022-09-20 20:03 | disposition home or self-care (01) | DRG 807 ==
LOC: 4S1 07:27 → 4E2 21:46